=== PATIENT | female | born 1945 ===

== ENCOUNTER 2017-04-02 09:22 | Day surgery (SDC) | payer MEDICARE ==
[2017-04-02] MEDS ORDERED: Propofol 10 mg/ml Inj (20 ML) ONE (13:30)
[2017-04-02 13:33] VITALS: BMI 29.2
[2017-04-02] MEDS ORDERED: Lactated Ringer's 500 ML IV SCH (13:45)
[2017-04-02 14:22] VITALS: TEMP 98.1; O2SAT 100
[2017-04-02 14:50] VITALS: RESP 15
[2017-04-02 14:53] VITALS: BP 160/78; PULSE 73
== END 2017-04-02 14:59 | disposition home or self-care (01) ==
LOC: C.ENDO 09:22
PROVIDERS: ATTEND Internal Medicine Gastroenterology
DX: K29.50 Unspecified chronic gastritis without bleeding (principal); K92.1 Melena; B96.81 Helicobacter pylori [H. pylori] as the cause of diseases classified elsewhere; K64.8 Other hemorrhoids
CPT/HCPCS: 43239; 45378; 88305; 88313; 88342; J2704; J7120